=== PATIENT | male | born 1945 | race Hispanic/Latino ===

== ENCOUNTER 2016-08-11 08:23 | Outpatient (CLI) | payer MEDICARE | END 2016-08-11 08:24 | LOC: NAVSJIPCSP 08:23 | PROVIDERS: ATTEND Internal Medicine | DX: E78.5 Hyperlipidemia, unspecified (principal) | CPT/HCPCS: 36415; 80061 ==

== ENCOUNTER 2016-11-16 09:14 | Outpatient (CLI) | payer MEDICARE ==
[2016-11-16 13:08] LABS: Cardiac Risk 2.9 (Less than 4.5)
[2016-11-16 18:15] LABS: Hep C IgG Ab Non-Reactive (NonReactive); Hep C Index 0.14 S/CO (0-0.79)
== END 2016-11-16 09:15 | disposition home or self-care (01) ==
LOC: NAVSJIPCSP 09:14
PROVIDERS: ATTEND Internal Medicine
DX: E78.5 Hyperlipidemia, unspecified (principal); Z72.89 Other problems related to lifestyle; Z79.899 Other long term (current) drug therapy
CPT/HCPCS: 36415; 80061; 86803; 86900; 86901

== ENCOUNTER 2017-02-15 09:24 | Outpatient (CLI) | payer MEDICARE ==
[2017-02-15 11:58] LABS: #Basophils 0.1 thou/uL (0.0-0.2); #Eosinphils 0.3 thou/uL (0.0-0.7); #Lymphocytes 2.3 thou/uL (1.20-3.40); #Monocytes 0.6 thou/uL (0.11-0.59); #Neutrophils 3.2 thou/uL (1.40-6.50); %Basophils 0.8 % (0.0-1.0); %Eosinophils 4.4 % (0.0-10.0); %Lymphocytes 35.5 % (21.0-51.0); %Monocytes 9.9 % (0.0-10.0); %Neutrophils 49.4 % (42.0-75.0); Hemoglobin 14.6 g/dL (14.0-18.0); Mean Corpuscular HGB CONC 32.2 g/dL (32.0-36.0); Mean Corpuscular Hemoglobin 30.1 pg (27.0-31.0); Mean Corpuscular Volume 93.4 fl (80.0-94.0); Mean Platelet Volume 7.9 fL (7.4-10.4); Platelet Count 212 thou/uL (130-400); RBC Distribution Width 12.6 % (11.5-14.5); Red Blood Cell (RBC) Count 4.87 mill/uL (4.70-6.10); White Blood Cell (WBC) Count 6.4 thou/uL (4.8-10.8)
[2017-02-15 12:16] LABS: Bilirubin Negative (Negative); Blood, Urine Negative (Negative); Clarity Clear (Clear); Glucose, Urine (Dipstick) Negative (Negative); Leukocyte Negative (Negative); Nitrite Negative (Negative); Protein, Urine (Dipstick) Negative (Neg-Trace); Urobilinogen 0.2 mg/dL (0.2-1.0)
[2017-02-15 12:24] LABS: ALT (SGPT) 25 U/L (8-55); AST (SGOT) 21 U/L (5-34); Albumin 4.4 g/dL (3.4-4.8); Alkaline Phosphatase 68 U/L (40-150); Anion Gap 17 mmol/L (10-20); BUN (Urea Nitrogen) 17 mg/dL (8.4-25.7); Bilirubin, Total 0.8 mg/dL (0.2-1.2); Calc. Creatinine Clearance 0 mL/min (70-130); Calcium 9.6 mg/dL (7.8-10.44); Carbon Dioxide 24 mmol/L (23-31); Cardiac Risk 2.7 (Less than 4.5); Chloride 106 mmol/L (98-107); Cholesterol 158 mg/dl (< 200 Desired); Estimated GFR-MDRD Greater than 90; Globulin 2.8 g/dL (2.4-3.5); Glucose 96 mg/dL (83-110); HDL Cholesterol 59 mg/dL (>60 Neg Risk); LDL Cholesterol, Calculated 84 mg/dL; Potassium 4.4 mmol/L (3.5-5.1); Protein, Total 7.2 g/dL (5.8-8.1); Sodium 143 mmol/L (136-145); Triglycerides 75 mg/dL (Less than 150)
== END 2017-02-15 09:25 | disposition home or self-care (01) ==
LOC: NAVSJIPCSP 09:24
PROVIDERS: ATTEND Internal Medicine
DX: Z12.5 Encounter for screening for malignant neoplasm of prostate (principal); N40.1 Benign prostatic hyperplasia with lower urinary tract symptoms; E78.5 Hyperlipidemia, unspecified; I11.9 Hypertensive heart disease without heart failure; Z79.899 Other long term (current) drug therapy
CPT/HCPCS: 36415; 80053; 80061; 81003; 85025; G0103

== ENCOUNTER 2018-02-19 08:33 | Emergency (ER) | payer MEDICARE | END 2018-02-19 09:01 | disposition left against medical advice (07) | LOC: NAV ERS 08:33 | DX: R60.0 Localized edema (principal); E78.5 Hyperlipidemia, unspecified; I10 Essential (primary) hypertension; Z79.82 Long term (current) use of aspirin; Z87.891 Personal history of nicotine dependence | CPT/HCPCS: 99283 ==

== ENCOUNTER 2021-04-01 15:08 | Inpatient (IN) | payer MEDICARE ==
[2021-04-01] MEDS ORDERED: Acetaminophen 325 MG TAB PO PRN (20:06)
[2021-04-01] MEDS ORDERED: Artificial Tear Sol 15 ML BOT EA EYE PRN (20:11)
[2021-04-01] MEDS ORDERED: Mag-Al Plus 1200 MG/1200 MG/120 MG/30 ML UDCUP PO PRN (20:24)
[2021-04-01] MEDS: Apixaban 5 MG TAB PO SCH (20:53)
[2021-04-01] MEDS: Atorvastatin Calcium 40 MG TAB PO SCH (20:53)
[2021-04-01] MEDS: traZODone HCl 50 MG TAB PO SCH (20:53)
[2021-04-02 05:47] LABS: #Basophils 0.1 thou/uL (0.0-0.2); #Eosinphils 0.3 thou/uL (0.0-0.7); #Lymphocytes 1.8 thou/uL (1.20-3.40); #Monocytes 0.8 thou/uL (0.11-0.59); #Neutrophils 6.9 thou/uL (1.40-6.50); %Basophils 0.9 % (0.0-1.0); %Eosinophils 3.5 % (0.0-10.0); %Lymphocytes 17.7 % (21.0-51.0); %Monocytes 8.4 % (0.0-10.0); %Neutrophils 69.6 % (42.0-75.0); Hemoglobin 13.9 g/dL (14.0-18.0); Mean Corpuscular HGB CONC 32.5 g/dL (32.0-36.0); Mean Corpuscular Hemoglobin 32.2 pg (27.0-31.0); Mean Corpuscular Volume 99.1 fL (78.0-98.0); Mean Platelet Volume 8.7 fL (7.4-10.4); Platelet Count 165 thou/uL (130-400); RBC Distribution Width 12.7 % (11.5-14.5); Red Blood Cell (RBC) Count 4.31 mill/uL (4.70-6.10)
[2021-04-02 05:59] LABS: ALT (SGPT) 24 U/L (8-55); AST (SGOT) 24 U/L (5-34); Albumin 2.9 g/dL (3.4-4.8); Alkaline Phosphatase 71 U/L (40-110); Anion Gap 12 mmol/L (10-20); BUN (Urea Nitrogen) 14 mg/dL (8.4-25.7); Bilirubin, Total 0.8 mg/dL (0.2-1.2); Calc. Creatinine Clearance 132 mL/min (70-130); Calcium 8.3 mg/dL (7.8-10.44); Carbon Dioxide 23 mmol/L (23-31); Chloride 106 mmol/L (98-107); Globulin 2.9 g/dL (2.4-3.5); Glucose 107 mg/dL (83-110); Potassium 3.6 mmol/L (3.5-5.1); Protein, Total 5.8 g/dL (5.8-8.1); Sodium 137 mmol/L (136-145)
[2021-04-02] MEDS: Finasteride 5 MG TAB PO SCH (09:28)
[2021-04-02] MEDS: Aspirin Chewable 81 MG TAB PO SCH (09:28)
[2021-04-02] MEDS: Apixaban 5 MG TAB PO SCH ×2 (09:28→20:49)
[2021-04-02] MEDS: Amlodipine 5 MG TAB PO SCH (09:28)
[2021-04-02] MEDS: Fish Oil 1,000 MG CAP PO SCH (09:28)
[2021-04-02] MEDS: Tamsulosin HCl 0.4 MG CAP PO SCH (09:28)
[2021-04-02] MEDS: Atorvastatin Calcium 40 MG TAB PO SCH (20:49)
[2021-04-02] MEDS: traZODone HCl 50 MG TAB PO SCH (20:49)
[2021-04-02 22:05] LABS: SARS-CoV-2 PCR by NAA Not Detected (NotDetected)
[2021-04-03] MEDS: Tamsulosin HCl 0.4 MG CAP PO SCH (09:05)
[2021-04-03] MEDS: Aspirin Chewable 81 MG TAB PO SCH (09:05)
[2021-04-03] MEDS: Finasteride 5 MG TAB PO SCH (09:05)
[2021-04-03] MEDS: Amlodipine 5 MG TAB PO SCH (09:06)
[2021-04-03] MEDS: Fish Oil 1,000 MG CAP PO SCH (09:06)
[2021-04-03] MEDS: Apixaban 5 MG TAB PO SCH ×2 (09:06→21:07)
[2021-04-03] MEDS: Atorvastatin Calcium 40 MG TAB PO SCH (21:07)
[2021-04-03] MEDS: traZODone HCl 50 MG TAB PO SCH (21:07)
[2021-04-04] MEDS: Apixaban 5 MG TAB PO SCH ×2 (09:17→20:55)
[2021-04-04] MEDS: Amlodipine 5 MG TAB PO SCH (09:17)
[2021-04-04] MEDS: Aspirin Chewable 81 MG TAB PO SCH (09:18)
[2021-04-04] MEDS: Fish Oil 1,000 MG CAP PO SCH (09:18)
[2021-04-04] MEDS: Finasteride 5 MG TAB PO SCH (09:18)
[2021-04-04] MEDS: Tamsulosin HCl 0.4 MG CAP PO SCH (09:18)
[2021-04-04] MEDS: Atorvastatin Calcium 40 MG TAB PO SCH (20:55)
[2021-04-04] MEDS: traZODone HCl 50 MG TAB PO SCH (20:55)
[2021-04-05] MEDS: Aspirin Chewable 81 MG TAB PO SCH (09:56)
[2021-04-05] MEDS: Fish Oil 1,000 MG CAP PO SCH (09:56)
[2021-04-05] MEDS: Tamsulosin HCl 0.4 MG CAP PO SCH (09:56)
[2021-04-05] MEDS: Amlodipine 5 MG TAB PO SCH (09:56)
[2021-04-05] MEDS: Apixaban 5 MG TAB PO SCH ×2 (09:56→21:11)
[2021-04-05] MEDS: Finasteride 5 MG TAB PO SCH (09:56)
[2021-04-05] MEDS: Atorvastatin Calcium 40 MG TAB PO SCH (21:11)
[2021-04-05] MEDS: traZODone HCl 50 MG TAB PO SCH (21:11)
[2021-04-06 06:33] LABS: Hemoglobin 14.5 g/dL (14.0-18.0)
[2021-04-06 06:46] LABS: Calc. Creatinine Clearance 117 mL/min (70-130)
[2021-04-06] MEDS: Amlodipine 5 MG TAB PO SCH (08:38)
[2021-04-06] MEDS: Fish Oil 1,000 MG CAP PO SCH (08:38)
[2021-04-06] MEDS: Apixaban 5 MG TAB PO SCH ×2 (08:38→21:08)
[2021-04-06] MEDS: Finasteride 5 MG TAB PO SCH (08:38)
[2021-04-06] MEDS: Tamsulosin HCl 0.4 MG CAP PO SCH (08:38)
[2021-04-06] MEDS: Aspirin Chewable 81 MG TAB PO SCH (08:38)
[2021-04-06] MEDS: Atorvastatin Calcium 40 MG TAB PO SCH (21:08)
[2021-04-06] MEDS: traZODone HCl 50 MG TAB PO SCH (21:08)
[2021-04-07] MEDS: Tamsulosin HCl 0.4 MG CAP PO SCH (09:41)
[2021-04-07] MEDS: Finasteride 5 MG TAB PO SCH (09:41)
[2021-04-07] MEDS: Apixaban 5 MG TAB PO SCH ×2 (09:41→20:59)
[2021-04-07] MEDS: Amlodipine 5 MG TAB PO SCH (09:42)
[2021-04-07] MEDS: Aspirin Chewable 81 MG TAB PO SCH (09:42)
[2021-04-07] MEDS: Fish Oil 1,000 MG CAP PO SCH (09:44)
[2021-04-07] MEDS: Atorvastatin Calcium 40 MG TAB PO SCH (20:59)
[2021-04-07] MEDS: traZODone HCl 50 MG TAB PO SCH (20:59)
[2021-04-08] MEDS: Fish Oil 1,000 MG CAP PO SCH (08:19)
[2021-04-08] MEDS: Finasteride 5 MG TAB PO SCH (08:19)
[2021-04-08] MEDS: Tamsulosin HCl 0.4 MG CAP PO SCH (08:19)
[2021-04-08] MEDS: Apixaban 5 MG TAB PO SCH ×2 (08:19→20:23)
[2021-04-08] MEDS: Aspirin Chewable 81 MG TAB PO SCH (08:19)
[2021-04-08] MEDS: Amlodipine 5 MG TAB PO SCH (08:19)
[2021-04-08] MEDS: Atorvastatin Calcium 40 MG TAB PO SCH (20:22)
[2021-04-08] MEDS: traZODone HCl 50 MG TAB PO SCH (20:23)
[2021-04-09 05:51] LABS: Calc. Creatinine Clearance 110 mL/min (70-130)
[2021-04-09] MEDS: Amlodipine 10 MG TAB PO SCH (08:14)
[2021-04-09] MEDS: Apixaban 5 MG TAB PO SCH ×2 (08:15→20:16)
[2021-04-09] MEDS: Tamsulosin HCl 0.4 MG CAP PO SCH (08:15)
[2021-04-09] MEDS: Finasteride 5 MG TAB PO SCH (08:15)
[2021-04-09] MEDS: Fish Oil 1,000 MG CAP PO SCH (08:15)
[2021-04-09] MEDS: Aspirin Chewable 81 MG TAB PO SCH (08:15)
[2021-04-09] MEDS: Atorvastatin Calcium 40 MG TAB PO SCH (20:16)
[2021-04-09] MEDS: traZODone HCl 50 MG TAB PO SCH (20:16)
[2021-04-10] MEDS: Amlodipine 10 MG TAB PO SCH (08:18)
[2021-04-10] MEDS: Finasteride 5 MG TAB PO SCH (08:19)
[2021-04-10] MEDS: Fish Oil 1,000 MG CAP PO SCH (08:19)
[2021-04-10] MEDS: Aspirin Chewable 81 MG TAB PO SCH (08:19)
[2021-04-10] MEDS: Apixaban 5 MG TAB PO SCH ×2 (08:19→20:20)
[2021-04-10] MEDS: Tamsulosin HCl 0.4 MG CAP PO SCH (08:20)
[2021-04-10 20:20] LABS: SARS-CoV-2 PCR by NAA Not Detected (NotDetected)
[2021-04-10] MEDS: Atorvastatin Calcium 40 MG TAB PO SCH (20:20)
[2021-04-10] MEDS: traZODone HCl 50 MG TAB PO SCH (20:20)
[2021-04-11] MEDS: Amlodipine 10 MG TAB PO SCH (08:19)
[2021-04-11] MEDS: Tamsulosin HCl 0.4 MG CAP PO SCH (08:19)
[2021-04-11] MEDS: Fish Oil 1,000 MG CAP PO SCH (08:19)
[2021-04-11] MEDS: Aspirin Chewable 81 MG TAB PO SCH (08:19)
[2021-04-11] MEDS: Apixaban 5 MG TAB PO SCH ×2 (08:22→20:30)
[2021-04-11] MEDS: Finasteride 5 MG TAB PO SCH (08:22)
[2021-04-11] MEDS ORDERED: Famotidine 20 MG TAB PO SCH ×2 (13:30→14:00)
[2021-04-11] MEDS: traZODone HCl 50 MG TAB PO SCH (20:31)
[2021-04-11] MEDS: Famotidine 20 MG TAB PO SCH (20:31)
[2021-04-11] MEDS: Atorvastatin Calcium 40 MG TAB PO SCH (20:31)
[2021-04-12 06:43] LABS: Hemoglobin 15.6 g/dL (14.0-18.0)
[2021-04-12 06:45] LABS: Calc. Creatinine Clearance 105 mL/min (70-130)
[2021-04-12] MEDS: Aspirin Chewable 81 MG TAB PO SCH (10:04)
[2021-04-12] MEDS: Fish Oil 1,000 MG CAP PO SCH (10:04)
[2021-04-12] MEDS: Apixaban 5 MG TAB PO SCH ×2 (10:04→20:34)
[2021-04-12] MEDS: Tamsulosin HCl 0.4 MG CAP PO SCH (10:04)
[2021-04-12] MEDS: Finasteride 5 MG TAB PO SCH (10:04)
[2021-04-12] MEDS: Amlodipine 10 MG TAB PO SCH (10:04)
[2021-04-12] MEDS: Famotidine 20 MG TAB PO SCH ×2 (10:04→20:34)
[2021-04-12] MEDS: Atorvastatin Calcium 40 MG TAB PO SCH (20:34)
[2021-04-12] MEDS: traZODone HCl 50 MG TAB PO SCH (20:34)
[2021-04-13] MEDS: Amlodipine 10 MG TAB PO SCH (08:55)
[2021-04-13] MEDS: Fish Oil 1,000 MG CAP PO SCH (08:57)
[2021-04-13] MEDS: Famotidine 20 MG TAB PO SCH ×2 (08:57→20:13)
[2021-04-13] MEDS: Aspirin Chewable 81 MG TAB PO SCH (08:57)
[2021-04-13] MEDS: Apixaban 5 MG TAB PO SCH ×2 (08:57→20:14)
[2021-04-13] MEDS: Finasteride 5 MG TAB PO SCH (08:57)
[2021-04-13] MEDS: Tamsulosin HCl 0.4 MG CAP PO SCH (08:58)
[2021-04-13] MEDS: Atorvastatin Calcium 40 MG TAB PO SCH (20:13)
[2021-04-13] MEDS: traZODone HCl 50 MG TAB PO SCH (20:14)
[2021-04-14] MEDS: Amlodipine 10 MG TAB PO SCH (08:18)
[2021-04-14] MEDS: Fish Oil 1,000 MG CAP PO SCH (08:19)
[2021-04-14] MEDS: Famotidine 20 MG TAB PO SCH ×2 (08:19→20:53)
[2021-04-14] MEDS: Finasteride 5 MG TAB PO SCH (08:19)
[2021-04-14] MEDS: Aspirin Chewable 81 MG TAB PO SCH (08:19)
[2021-04-14] MEDS: Apixaban 5 MG TAB PO SCH ×2 (08:19→20:52)
[2021-04-14] MEDS: Tamsulosin HCl 0.4 MG CAP PO SCH ×2 (08:19→20:53)
[2021-04-14] MEDS: traZODone HCl 50 MG TAB PO SCH (20:53)
[2021-04-14] MEDS: Sulfameth/Trimethoprim DS 800-160mg TAB PO SCH (20:53)
[2021-04-14] MEDS: Atorvastatin Calcium 40 MG TAB PO SCH (20:53)
[2021-04-15 07:13] LABS: Calc. Creatinine Clearance 103 mL/min (70-130)
[2021-04-15 07:14] LABS: Hemoglobin 14.8 g/dL (14.0-18.0)
[2021-04-15] MEDS: Aspirin Chewable 81 MG TAB PO SCH (08:47)
[2021-04-15] MEDS: Amlodipine 10 MG TAB PO SCH (08:47)
[2021-04-15] MEDS: Finasteride 5 MG TAB PO SCH (08:48)
[2021-04-15] MEDS: Fish Oil 1,000 MG CAP PO SCH (08:49)
[2021-04-15] MEDS: Apixaban 5 MG TAB PO SCH ×2 (08:49→21:16)
[2021-04-15] MEDS: Tamsulosin HCl 0.4 MG CAP PO SCH ×2 (08:49→21:16)
[2021-04-15] MEDS: Sulfameth/Trimethoprim DS 800-160mg TAB PO SCH ×2 (08:49→21:16)
[2021-04-15] MEDS: Famotidine 20 MG TAB PO SCH ×2 (08:50→21:16)
[2021-04-15] MEDS: Atorvastatin Calcium 40 MG TAB PO SCH (21:16)
[2021-04-15] MEDS: traZODone HCl 50 MG TAB PO SCH (21:17)
[2021-04-16 05:36] VITALS: BMI 30.9
[2021-04-16 07:41] VITALS: BP 115/68; TEMP 98.5
[2021-04-16] MEDS: Sulfameth/Trimethoprim DS 800-160mg TAB PO SCH ×2 (08:06→16:53)
[2021-04-16] MEDS: Amlodipine 10 MG TAB PO SCH (08:06)
[2021-04-16] MEDS: Famotidine 20 MG TAB PO SCH (08:07)
[2021-04-16] MEDS: Apixaban 5 MG TAB PO SCH (08:07)
[2021-04-16] MEDS: Finasteride 5 MG TAB PO SCH (08:07)
[2021-04-16] MEDS: Tamsulosin HCl 0.4 MG CAP PO SCH (08:07)
[2021-04-16] MEDS: Fish Oil 1,000 MG CAP PO SCH (08:08)
[2021-04-16] MEDS: Aspirin Chewable 81 MG TAB PO SCH (08:08)
[2021-04-16] MEDS ORDERED: Sulfameth/Trimethoprim DS 800-160mg TAB ONE (16:46)
== END 2021-04-16 16:30 | disposition home health service (06) | DRG 57 ==
LOC: NAV ACUTE 18:12
PROVIDERS: ADMIT Family Medicine; ATTEND Family Medicine
PROC: 5A09357 Assistance with Respiratory Ventilation, Less than 24 Consecutive Hours, Continuous Positive Airway Pressure (ICD-10-PCS; principal; 2021-04-07)
DX: I69.354 Hemiplegia and hemiparesis following cerebral infarction affecting left non-dominant side (principal); I48.91 Unspecified atrial fibrillation; I10 Essential (primary) hypertension; G47.33 Obstructive sleep apnea (adult) (pediatric); E78.5 Hyperlipidemia, unspecified; N40.1 Benign prostatic hyperplasia with lower urinary tract symptoms; R33.8 Other retention of urine; I72.4 Aneurysm of artery of lower extremity; Z20.822 Contact with and (suspected) exposure to COVID-19; R13.10 Dysphagia, unspecified; Z87.891 Personal history of nicotine dependence; I69.392 Facial weakness following cerebral infarction; Z79.01 Long term (current) use of anticoagulants; I69.391 Dysphagia following cerebral infarction
CPT/HCPCS: 36415; 80053; 82565; 85014; 85018; 85025; 87086; U0003; U0005

== ENCOUNTER 2021-04-23 01:04 | Emergency (ER) | payer MEDICARE ==
[2021-04-23 02:35] LABS: Bilirubin Negative (Negative); Blood, Urine Large (Negative); Glucose, Urine (Dipstick) Negative (Negative); Ketone, Urine Negative (Negative); Leukocyte Negative (Negative); Nitrite Negative (Negative); Protein, Urine (Dipstick) Negative (Neg-Trace); Urobilinogen 0.2 mg/dL (Less than 2)
[2021-04-23 02:39] LABS: Clarity Clear (Clear); Specific Gravity, Urine 1.005 (1.002-1.036)
[2021-04-23 02:42] LABS: RBC/HPF None Seen HPF (0-3); Squamous Epithelial 0-3 HPF (0-3); WBC/HPF None Seen HPF (0-3)
[2021-04-23 02:43] LABS: Bacteria/HPF None Seen HPF (None Seen)
== END 2021-04-23 02:25 | disposition home or self-care (01) ==
LOC: NAV ERS 01:04
DX: R33.9 Retention of urine, unspecified (principal); E78.5 Hyperlipidemia, unspecified; I10 Essential (primary) hypertension; Z87.891 Personal history of nicotine dependence; Z79.82 Long term (current) use of aspirin; Z79.899 Other long term (current) drug therapy
CPT/HCPCS: 51702; 51798; 81003; 81015

== ENCOUNTER 2021-05-03 21:17 | Emergency (ER) | payer MEDICARE ==
[2021-05-03 22:15] LABS: Bilirubin Negative (Negative); Blood, Urine Moderate (Negative); Clarity Clear (Clear); Glucose, Urine (Dipstick) Negative (Negative); Ketone, Urine Negative (Negative); Leukocyte Trace (Negative); Nitrite Positive (Negative); Protein, Urine (Dipstick) Negative (Neg-Trace); Urobilinogen 0.2 mg/dL (Less than 2)
[2021-05-03 22:16] LABS: Bacteria/HPF 1+ HPF (None Seen); Squamous Epithelial None Seen HPF (0-3); WBC/HPF 0-3 HPF (0-3)
== END 2021-05-03 22:55 | disposition home or self-care (01) ==
LOC: NAV ERS 21:17
DX: R31.9 Hematuria, unspecified (principal); E78.5 Hyperlipidemia, unspecified; I10 Essential (primary) hypertension; Z86.73 Personal history of transient ischemic attack (TIA), and cerebral infarction without residual deficits; Z87.891 Personal history of nicotine dependence; Z79.82 Long term (current) use of aspirin; Z79.899 Other long term (current) drug therapy
CPT/HCPCS: 81003; 81015; 87077; 87086; 87186; 99283

== ENCOUNTER 2022-07-09 07:19 | Emergency (ER) | payer MEDICARE ==
[2022-07-09] MEDS ORDERED: methylPREDNISolone Sod Succ/PF 125 MG/2 ML VIAL ONE (08:52)
[2022-07-09] MEDS ORDERED: Ipratropium/Albuterol 3 ML NEB ONE (08:52)
== END 2022-07-09 09:55 | disposition home or self-care (01) ==
LOC: NAV ERS 07:19
DX: U07.1 COVID-19 (principal); J06.9 Acute upper respiratory infection, unspecified; E78.5 Hyperlipidemia, unspecified; I10 Essential (primary) hypertension; Z87.891 Personal history of nicotine dependence; Z79.899 Other long term (current) drug therapy; Z79.82 Long term (current) use of aspirin
CPT/HCPCS: 71046; 87081; 87430; 87804; 96372; J2930; J7620; U0003; U0005

== ENCOUNTER 2024-03-19 03:36 | Emergency (ER) | payer MEDICARE | END 2024-03-19 04:28 | disposition home or self-care (01) | LOC: NAV ERS 03:36 | DX: B34.9 Viral infection, unspecified (principal); I10 Essential (primary) hypertension; Z87.891 Personal history of nicotine dependence | CPT/HCPCS: 87428; 99283 ==

== ENCOUNTER 2025-02-25 04:28 | Emergency (ER) | payer MEDICARE, OTHER | END 2025-02-25 05:59 | disposition home or self-care (01) | LOC: NAV ERS 04:28 | DX: T83.098A Other mechanical complication of other urinary catheter, initial encounter (principal); N40.1 Benign prostatic hyperplasia with lower urinary tract symptoms; R33.8 Other retention of urine; R29.701 NIHSS score 1; I10 Essential (primary) hypertension; I48.91 Unspecified atrial fibrillation; Z75.8 Other problems related to medical facilities and other health care; Z86.73 Personal history of transient ischemic attack (TIA), and cerebral infarction without residual deficits; Z87.891 Personal history of nicotine dependence; Z79.899 Other long term (current) drug therapy | CPT/HCPCS: 51702; 99283 ==

== ENCOUNTER 2025-03-02 07:28 | Emergency (ER) | payer MEDICARE, OTHER | END 2025-03-02 09:45 | disposition home or self-care (01) | LOC: NAV ERS 07:28 | DX: T83.031A Leakage of indwelling urethral catheter, initial encounter (principal); E78.5 Hyperlipidemia, unspecified; I10 Essential (primary) hypertension; I48.91 Unspecified atrial fibrillation; Z86.73 Personal history of transient ischemic attack (TIA), and cerebral infarction without residual deficits; Z87.891 Personal history of nicotine dependence; Z79.899 Other long term (current) drug therapy | CPT/HCPCS: 51702; 99283 ==

== ENCOUNTER 2025-03-12 18:39 | Emergency (ER) | payer MEDICARE, OTHER | END 2025-03-12 20:30 | disposition home or self-care (01) | LOC: NAV ERS 18:39 | DX: T83.091A Other mechanical complication of indwelling urethral catheter, initial encounter (principal); I10 Essential (primary) hypertension; I48.91 Unspecified atrial fibrillation; Z86.73 Personal history of transient ischemic attack (TIA), and cerebral infarction without residual deficits; Z87.891 Personal history of nicotine dependence | CPT/HCPCS: 51798; 99283 ==

== ENCOUNTER 2025-03-18 08:15 | Emergency (ER) | payer MEDICARE, OTHER ==
[2025-03-18] MEDS ORDERED: Cyclobenzaprine 10 MG TAB ONE (09:30)
[2025-03-18] MEDS ORDERED: Bacitracin 1 PK ONE (11:06)
== END 2025-03-18 13:31 | disposition home or self-care (01) ==
LOC: NAV ERS 08:15
DX: S16.1XXA Strain of muscle, fascia and tendon at neck level, initial encounter (principal); T83.031A Leakage of indwelling urethral catheter, initial encounter; E78.5 Hyperlipidemia, unspecified; I11.0 Hypertensive heart disease with heart failure; I48.91 Unspecified atrial fibrillation; Z86.73 Personal history of transient ischemic attack (TIA), and cerebral infarction without residual deficits; Z87.891 Personal history of nicotine dependence; Z79.01 Long term (current) use of anticoagulants; Z79.82 Long term (current) use of aspirin; Z79.899 Other long term (current) drug therapy; X50.1XXA Overexertion from prolonged static or awkward postures, initial encounter
CPT/HCPCS: 51702; 99283